=== PATIENT | female | born 1975 | race Caucasian/White ===

== ENCOUNTER 2022-02-03 11:04 | Outpatient (CLI) | payer OTHER, SELFPAY ==
[2022-02-03 13:08] LABS: Cholesterol* 193 mg/dL (90-199); Glucose* 84 mg/dL (60-115)
[2022-02-03 13:09] LABS: HDL Cholesterol* 76 mg/dL (>=50); LDL Cholesterol Calculated 101 mg/dL (<100); Triglycerides* 78 mg/dL (40-149)
[2022-02-03 13:29] LABS: Vitamin D 25 Hydroxy* 44 ng/mL (30-80)
[2022-02-03 13:42] LABS: TSH With Reflex to FT4* 0.377 uIU/mL (0.270-4.200)
== END 2022-02-03 11:05 | disposition home or self-care (01) ==
PROVIDERS: Visit Provider Registered Nurse
DX: Z01.419 Encounter for gynecological examination (general) (routine) without abnormal findings (principal); Z13.6 Encounter for screening for cardiovascular disorders; Z13.29 Encounter for screening for other suspected endocrine disorder; Z13.0 Encounter for screening for diseases of the blood and blood-forming organs and certain disorders involving the immune mechanism; Z13.1 Encounter for screening for diabetes mellitus
CPT/HCPCS: 80061; 82306; 82947; 84443